=== PATIENT | female | born 1990 | race Caucasian/White ===

== ENCOUNTER 2021-09-29 09:35 | Outpatient (CLI) | payer BC | END 2021-09-29 09:36 | disposition home or self-care (01) | LOC: CSHCT 09:35 | PROVIDERS: ATTEND Neurological Surgery | DX: M54.16 Radiculopathy, lumbar region (principal); M54.50 Low back pain, unspecified | CPT/HCPCS: 72131 ==

== ENCOUNTER 2022-06-26 08:59 | Day surgery (SDC) | payer BC ==
[2022-06-26 09:26] VITALS: BMI 26.9
[2022-06-26] MEDS ORDERED: hydrALAZINE 20 MG/ML VIAL SLOW IVP PRN (11:09)
== END 2022-06-26 11:00 | disposition home or self-care (01) ==
LOC: CSHLD/OP 08:59
PROVIDERS: ATTEND Obstetrics & Gynecology
DX: O36.8130 Decreased fetal movements, third trimester, not applicable or unspecified (principal); Z3A.30 30 weeks gestation of pregnancy
CPT/HCPCS: 76819

== ENCOUNTER 2022-09-07 19:00 | Inpatient (IN) | payer BC, OTHER ==
[~2022-09-07 19:00] MED LIST: Bupivacaine 0.25% HCL 30 ML VIAL ONE
[2022-09-07] MEDS ORDERED: HYDROcodone/Acetaminophen 5/325 mg Tablet PO PRN (21:40)
[2022-09-07] MEDS ORDERED: Promethazine HCl 25 MG/ML VIAL IM PRN (21:40)
[2022-09-07] MEDS ORDERED: Misoprostol 200 MCG TAB PR PRN (21:40)
[2022-09-07] MEDS ORDERED: Lidocaine 1% (PF) 30 ML VIAL SC PRN (21:40)
[2022-09-07] MEDS ORDERED: Acetaminophen 500 MG TAB PO PRN (21:40)
[2022-09-07] MEDS ORDERED: Diphenoxylate HCl/Atropine Tablet PO PRN (21:40)
[2022-09-07] MEDS ORDERED: Ibuprofen 800 MG TAB PO PRN (21:40)
[2022-09-07] MEDS ORDERED: Carboprost 250 MCG/ML AMP IM PRN (21:40)
[2022-09-07] MEDS ORDERED: Butorphanol Tartrate 1 MG/ML VIAL SLOW IVP PRN (21:40)
[2022-09-07] MEDS ORDERED: Ondansetron PF 4 MG/2 ML Vial IVP PRN (21:40)
[2022-09-07] MEDS ORDERED: Methylergonovine 0.2 MG/ML VIAL IM PRN (21:40)
[2022-09-07] MEDS ORDERED: hydrALAZINE 20 MG/ML VIAL SLOW IVP PRN (21:40)
[2022-09-07] MEDS ORDERED: Lactated Ringer's 1,000 ML IV SCH (21:45)
[2022-09-07] MEDS ORDERED: NS w/ Oxytocin 30 units 500 ML IV SCH ×2 (21:45)
[2022-09-07 22:18] VITALS: BMI 28.6
[2022-09-07 22:50] LABS: Hemoglobin 12.6 g/dL (12.0-15.5); Mean Corpuscular HGB CONC 34.1 g/dL (32.0-36.0); Mean Corpuscular Volume 90.9 fl (81.6-98.3); Mean Platelet Volume 11.3 fl (7.4-10.4); Platelet Count 208 10x3/uL (150-450); RBC Distribution Width 13.2 % (11.5-14.5); Red Blood Cell (RBC) Count 4.07 10x6/uL (3.90-5.03)
[2022-09-07 23:28] LABS: HBSAg Index 0.18 S/CO (0-0.99); Hep B Surf Ag Non-Reactive S/CO (NonReactive)
[2022-09-07 23:29] LABS: Syphilis Antibody Nonreactive (Nonreactive); Syphilis Antibody Index 0.04 S/CO (<1.00 Non-Reactive)
[2022-09-07 23:39] LABS: SARS-CoV-2 NAA Rapid Test Not Detected (NotDetected)
[2022-09-08] MEDS ORDERED: Misoprostol 100 MCG TAB VAG SCH
[2022-09-08] MEDS ORDERED: Fentanyl 2 mcg/Bup 0.1% Cadd 100 ML ONE (02:23)
[2022-09-08] MEDS ORDERED: Fentanyl 100 MCG/2 ML VIAL ONE (02:29)
[2022-09-08] MEDS ORDERED: Ondansetron PF 4 MG/2 ML Vial IVP PRN ×2 (02:54→09:56)
[2022-09-08] MEDS ORDERED: ePHEDrine Sulfate 50 MG/10 ML VIAL SLOW IVP PRN (02:54)
[2022-09-08] MEDS ORDERED: Naloxone HCl 0.4 mg/ml Vial IVP PRN ×2 (02:54)
[2022-09-08] MEDS ORDERED: Lactated Ringer's 500 ML IV PRN (02:54)
[2022-09-08] MEDS ORDERED: Moisturizing Cream (Eucerin) 113 GM JAR TOP PRN (02:54)
[2022-09-08] MEDS ORDERED: Promethazine HCl 25 MG/ML VIAL IM PRN ×2 (02:54→09:56)
[2022-09-08] MEDS ORDERED: Acetaminophen 325 MG TAB PO PRN (02:54)
[2022-09-08] MEDS ORDERED: diphenhydrAMINE 50 MG/ML VIAL IVP PRN (02:54)
[2022-09-08] MEDS ORDERED: Fentanyl 2 mcg/Bupivacaine 0.1% Cassette 100 ML EPIDURAL SCH (03:00)
[2022-09-08] MEDS ORDERED: Communication Order-Pharmacy FS SCH (03:00)
[2022-09-08] MEDS ORDERED: Bisacodyl 10 MG SUPP PR PRN (09:56)
[2022-09-08] MEDS ORDERED: Benzocaine-Menthol 82.5 ML CAN TOP PRN (09:56)
[2022-09-08] MEDS ORDERED: Milk Of Magnesia 30 ML UDCUP PO PRN (09:56)
[2022-09-08] MEDS ORDERED: Lanolin Ointment 7 GM TUBE TOP PRN (09:56)
[2022-09-08] MEDS ORDERED: Preparation H Ointment 28 GM TUBE PR PRN (09:56)
[2022-09-08] MEDS ORDERED: diphenhydrAMINE 25 MG CAP PO PRN (09:56)
[2022-09-08] MEDS ORDERED: HYDROcodone/Acetaminophen 5/325 mg Tablet PO PRN (09:56)
[2022-09-08] MEDS ORDERED: hydrALAZINE 20 MG/ML VIAL SLOW IVP PRN (09:56)
[2022-09-08] MEDS ORDERED: Ferrous Sulfate 325 MG TAB PO SCH (10:30)
[2022-09-08] MEDS ORDERED: Prenatal Vitamin 1 TAB PO SCH (10:30)
[2022-09-08] MEDS ORDERED: Docusate 100 MG CAP PO SCH (10:30)
[2022-09-08] MEDS: Ibuprofen 800 MG TAB PO SCH ×2 (15:27→21:08)
[2022-09-08] MEDS: Ferrous Sulfate 325 MG TAB PO SCH (19:16)
[2022-09-08] MEDS: Docusate 100 MG CAP PO SCH (21:08)
[2022-09-09] MEDS: Ibuprofen 800 MG TAB PO SCH ×3 (05:10→21:15)
[2022-09-09 05:52] LABS: Hemoglobin 10.2 g/dL (12.0-15.5)
[2022-09-09] MEDS: Ferrous Sulfate 325 MG TAB PO SCH ×2 (09:02→17:42)
[2022-09-09] MEDS: Prenatal Vitamin 1 TAB PO SCH (09:46)
[2022-09-09] MEDS: Docusate 100 MG CAP PO SCH ×2 (09:47→21:15)
[2022-09-09] MEDS: HYDROcodone/Acetaminophen 5/325 mg Tablet PO PRN ×2 (15:04→21:15)
[2022-09-09 23:18] VITALS: BP 103/61; TEMP 98.5
[2022-09-10] MEDS: Ibuprofen 800 MG TAB PO SCH (05:53)
[2022-09-10] MEDS: HYDROcodone/Acetaminophen 5/325 mg Tablet PO PRN (05:53)
[2022-09-10] MEDS: Ferrous Sulfate 325 MG TAB PO SCH (07:27)
[2022-09-10] MEDS: Docusate 100 MG CAP PO SCH (09:31)
[2022-09-10] MEDS: Prenatal Vitamin 1 TAB PO SCH (09:31)
[2022-09-11] MEDS ORDERED: Boostrix 0.5 ML (Tdap) VIAL (>/=7 yrs of age) IM ONE (09:56)
== END 2022-09-10 12:33 | disposition home or self-care (01) | DRG 807 ==
LOC: CSHLD 21:55 → CSHPED 09-08 10:31
PROVIDERS: ADMIT Student in an Organized Health Care Education/Training Program; ATTEND Student in an Organized Health Care Education/Training Program
PROC: 10E0XZZ Delivery of Products of Conception, External Approach (ICD-10-PCS; principal; 2022-09-08)
PROC: 0KQM0ZZ Repair Perineum Muscle, Open Approach (ICD-10-PCS; 2022-09-08)
PROC: 3E0P7VZ Introduction of Hormone into Female Reproductive, Via Natural or Artificial Opening (ICD-10-PCS; 2022-09-08)
DX: O48.0 Post-term pregnancy (principal); Z37.0 Single live birth; Z20.822 Contact with and (suspected) exposure to COVID-19; Z91.018 Allergy to other foods; Z91.040 Latex allergy status; Z3A.41 41 weeks gestation of pregnancy; O70.1 Second degree perineal laceration during delivery
CPT/HCPCS: 36415; 51702; 85014; 85018; 85027; 86780; 86850; 86900; 86901; 87340; J0595; S0020; U0002

== ENCOUNTER 2024-08-25 09:10 | Outpatient (CLI) | payer BC | END 2024-08-25 09:11 | disposition home or self-care (01) | LOC: CSHLAB 09:10 | PROVIDERS: ATTEND Obstetrics & Gynecology | DX: O09.90 Supervision of high risk pregnancy, unspecified, unspecified trimester (principal) | CPT/HCPCS: 84702 ==

== ENCOUNTER 2025-07-23 19:20 | Inpatient (IN) | payer BC ==
[2025-07-23 19:58] VITALS: BMI 30.4
[2025-07-23] MEDS ORDERED: hydrALAZINE 20 MG/ML VIAL SLOW IVP PRN ×2 (20:40→23:49)
[2025-07-23] MEDS ORDERED: Oxytocin 30 units/NS 500 ML 500 ML IV SCH ×3 (23:45)
[2025-07-23] MEDS ORDERED: Acetaminophen 500 MG TAB PO PRN (23:49)
[2025-07-23] MEDS ORDERED: Tranexamic Acid 1,000 MG/10 ML VIAL IVP PRN (23:49)
[2025-07-23] MEDS ORDERED: Ondansetron PF 4 MG/2 ML Vial IVP PRN (23:49)
[2025-07-23] MEDS ORDERED: Diphenoxylate HCl/Atropine Tablet PO PRN ×2 (23:49)
[2025-07-23] MEDS ORDERED: Carboprost 250 MCG/ML AMP IM PRN (23:49)
[2025-07-23] MEDS ORDERED: Methylergonovine 0.2 MG/ML VIAL IM PRN (23:49)
[2025-07-23] MEDS ORDERED: Lidocaine 1% (PF) 30 ML VIAL SC PRN (23:49)
[2025-07-23 23:57] LABS: Hematocrit 35.2 % (34.9-44.5); Hemoglobin 11.6 g/dL (12.0-15.5); Mean Corpuscular Hemoglobin 28.6 pg (27.0-33.0); Mean Corpuscular Volume 86.7 fL (81.6-98.3); Platelet Count 252 10x3/uL (150-450); Red Blood Cell (RBC) Count 4.06 10x6/uL (3.90-5.03); White Blood Cell (WBC) Count 15.63 10x3/uL (3.5-10.5)
[2025-07-24] MEDS: fentaNYL/Ropivacaine Epidural 100 ML ONE (00:35)
[2025-07-24 00:40] LABS: Syphilis Antibody Index 0.09 S/CO (<1.00 Non-Reactive)
[2025-07-24 00:41] LABS: Hep B Surf Ag - L&D Non-Reactive S/CO (NonReactive)
[2025-07-24] MEDS ORDERED: Ondansetron PF 4 MG/2 ML Vial IVP PRN ×2 (00:52→14:11)
[2025-07-24] MEDS ORDERED: Acetaminophen 325 MG TAB PO PRN ×2 (00:52→14:18)
[2025-07-24] MEDS ORDERED: diphenhydrAMINE 50 MG/ML VIAL IVP PRN (00:52)
[2025-07-24] MEDS ORDERED: Communication Order-Pharmacy FS SCH (01:00)
[2025-07-24] MEDS: fentaNYL 2 mcg/Ropivacaine 0.2% Epidural 100 ML CADD EPIDURAL SCH (08:59)
[2025-07-24] MEDS: Ibuprofen 800 MG TAB PO PRN (14:10)
[2025-07-24] MEDS ORDERED: diphenhydrAMINE 25 MG CAP PO PRN (14:11)
[2025-07-24] MEDS ORDERED: Benzocaine-Menthol 82.5 ML CAN TOP PRN (14:11)
[2025-07-24] MEDS ORDERED: Bisacodyl 10 MG SUPP PR PRN (14:11)
[2025-07-24] MEDS ORDERED: HYDROcodone/Acetaminophen 5/325 mg Tablet PO PRN (14:11)
[2025-07-24] MEDS ORDERED: Milk Of Magnesia 30 ML UDCUP PO PRN (14:11)
[2025-07-24] MEDS ORDERED: hydrALAZINE 20 MG/ML VIAL SLOW IVP PRN (14:11)
[2025-07-24] MEDS ORDERED: Preparation H Ointment 28 GM TUBE PR PRN (14:11)
[2025-07-24] MEDS ORDERED: Lanolin Ointment 7 GM TUBE TOP PRN (14:11)
[2025-07-24] MEDS ORDERED: HYDROcodone/Acetaminophen 10/325 mg Tablet PO PRN ×2 (14:17→14:18)
[2025-07-24] MEDS: Boostrix 0.5 ML (Tdap) VIAL (>/=7 yrs of age) IM ONE (19:02)
[2025-07-24] MEDS: Oxytocin 30 units/NS 500 ML 500 ML ONE (19:02)
[2025-07-24] MEDS: Ferrous Sulfate 325 MG TAB PO SCH (19:02)
[2025-07-24] MEDS: Ibuprofen 800 MG TAB PO SCH (22:38)
[2025-07-25 08:19] VITALS: BP 102/53; TEMP 98.6
== END 2025-07-25 18:47 | disposition home or self-care (01) | DRG 807 ==
LOC: CSHLD/OP 19:20 → CSHLD 23:49 → CSHPED 07-24 12:35
PROVIDERS: ADMIT Student in an Organized Health Care Education/Training Program; ATTEND Student in an Organized Health Care Education/Training Program
PROC: 10E0XZZ Delivery of Products of Conception, External Approach (ICD-10-PCS; principal; 2025-07-24)
DX: O80 Encounter for full-term uncomplicated delivery (principal); Z37.0 Single live birth; Z3A.38 38 weeks gestation of pregnancy
CPT/HCPCS: 51702; 85027; 86780; 86850; 86900; 86901; 87340; 99285; J7120